=== PATIENT | female | born 1960 | race Caucasian/White ===

== ENCOUNTER 2019-11-19 13:15 | Inpatient (IN) | payer OTHER ==
[2019-12-22] MEDS ORDERED: Tranexamic Acid 1,000 MG/10 ML VIAL ONE (10:00)
[2019-12-22] MEDS ORDERED: Sodium Chloride 0.9% 100 ML ONE (10:00)
[2019-12-22] MEDS ORDERED: Vancomycin 1.5 GRAM/300 ML BAG 1.5 GM/300 ML BAG ONE (10:00)
[2019-12-22 10:37] LABS: Potassium 4.2 mmol/L (3.5-5.1)
[2019-12-22] MEDS ORDERED: Lidocaine 1.5% w/Epi 1:200K 30 ML VIAL (Epid Use) ONE (11:23)
[2019-12-22] MEDS ORDERED: PHENYLEPHRINE-NS 100 MCG/ML 10 ML SYRINGE ONE (11:23)
[2019-12-22] MEDS ORDERED: PROPOFOL 200 MG/20 ML VIAL ONE (11:23)
[2019-12-22] MEDS ORDERED: Lidocaine 1% PF 5 ML VIAL ONE (11:23)
[2019-12-22] MEDS ORDERED: Rocuronium Bromide 10 MG/ML (10ML VIAL) ONE (11:23)
[2019-12-22] MEDS ORDERED: Fentanyl 100 MCG/2 ML VIAL ONE ×3 (11:27→14:25)
[2019-12-22] MEDS ORDERED: Midazolam HCl 2 mg/2 ml Vial ONE (11:27)
[2019-12-22] MEDS ORDERED: Zolpidem Tartrate 5 MG TAB PO PRN ×2 (12:15→12:21)
[2019-12-22] MEDS ORDERED: Bupivacaine 0.25% 10 ML VIAL EPIDURAL PRN (12:15)
[2019-12-22] MEDS ORDERED: Hydrocerin (Eucerin) Cream 120 gm Jar TOP PRN (12:15)
[2019-12-22] MEDS ORDERED: Promethazine HCl 25 MG SUPP PR PRN (12:15)
[2019-12-22] MEDS ORDERED: diphenhydrAMINE 50 MG/ML VIAL IVP PRN (12:15)
[2019-12-22] MEDS ORDERED: Ondansetron PF 4 MG/2 ML Vial IVP PRN ×2 (12:15→12:21)
[2019-12-22] MEDS ORDERED: Naloxone HCl 0.4 mg/ml Vial IVP PRN (12:15)
[2019-12-22] MEDS ORDERED: Promethazine HCl 25 MG/ML VIAL IM PRN ×2 (12:15→12:21)
[2019-12-22] MEDS ORDERED: Naloxone HCl 0.4 mg/ml Vial IV PRN (12:15)
[2019-12-22] MEDS ORDERED: diphenhydrAMINE 50 MG/ML VIAL IM PRN (12:15)
[2019-12-22] MEDS ORDERED: diphenhydrAMINE 25 MG CAP PO PRN ×2 (12:15→12:21)
[2019-12-22] MEDS ORDERED: traMADol HCl 50 MG TAB PO PRN (12:21)
[2019-12-22] MEDS ORDERED: ASPIRIN PO PRN (12:23)
[2019-12-22] MEDS ORDERED: oxyCODONE/Acetaminophen 5 mg/325 mg Tablet PO PRN (12:23)
[2019-12-22] MEDS ORDERED: clonazePAM 1 MG TAB PO PRN (12:23)
[2019-12-22] MEDS ORDERED: CAFFEINE PO PRN (12:23)
[2019-12-22] MEDS ORDERED: Ropivacaine 0.2% HCl/PF 20 ML ONE (12:34)
--- NOTE | 2019-12-22 14:47 | RAD ---
RIGHT HIP TWO VIEWS: 12/22/19 HISTORY: Postop total hip arthroplasty. FINDINGS/IMPRESSION: There are recent postop changes of total hip arthroplasty in good position and alignment. POS: TPC
--- NOTE | 2019-12-22 15:19 | OP ---
DATE OF PROCEDURE: 12/22/2019 This is Ruben Gutierrez PA-C dictating for Zia Rice MD. ANESTHESIA: General via endotracheal tube, augmented with indwelling epidural. PREOPERATIVE DIAGNOSIS: End-stage bicompartmental osteoarthritis, right hip. POSTOPERATIVE DIAGNOSIS: End-stage bicompartmental osteoarthritis, right hip. PROCEDURE: Press-fit right total hip arthroplasty. SURGEON: Zia Rice MD. ACTIVITIES OFFICER: Ruben Gutierrez PA-C. COMPONENTS USED: [employer] Accolade II press-fit size 4 hip stem with a size 52-mm Trident PSL press-fit acetabular shell, one 6.5 cancellous bone screw, a 36 mm ceramic femoral head with a -5 neck length. ESTIMATED BLOOD LOSS: 100 mL. SPECIMENS: None. DRAINS: None. COMPLICATIONS: None. COUNTS: Correct. FINDINGS: End-stage severe degenerative bicompartmental disease, [id number] arthrosis, periarticular osteophyte formation, large serous effusion, and hypertrophic synovium, changes consistent with chronic bicompartmental osteoarthritis. INDICATIONS FOR SURGERY: Estephania is a 59-year-old white female who has had progressive right hip groin, and thigh pain and problems with standing and walking for the last 5 to 7 years. She has failed conservative management and elected to proceed with total hip arthroplasty as definitive treatment of her pain. PROCEDURE IN DETAIL: After informed consent was obtained in the preoperative holding area, the patient was taken to the operative suite where general anesthesia was induced. The patient was then positioned in the lateral decubitus position. The hip was then prepped and draped in usual sterile fashion. The patient received preoperative antibiotics. Prior to incision, time-out was called and all members of the surgical team agreed upon site, surgeon, and patient. After this, a longitudinal incision was made directly over the trochanter, noted by palpation extending 2 fingerbreadths above and below the trochanter. The deeper subcutaneous layer was undermined with Bovie electrocautery. The iliotibial band was encountered and incised sharply and the plane below this was developed bluntly. A Charnley retractor was placed to hold this opened. The lateral aspect of the trochanter and the abductor muscles were encountered and then reflected anteriorly off the trochanter using Bovie electrocautery. Once this was completed, the anterior capsule was then encountered and identified and copious capsulotomy was carried out, exposing the femoral neck and head. Dislocation maneuver was then performed and an in situ provisional neck cut was then made using the oscillating saw. Attention was then turned to acetabular preparation. Sequential reaming was carried out up to the appropriate diameter and a trial was then malleted into place with good firm resistance and no pullout. The permanent acetabular shell was then malleted squarely into place, as was the appropriate liner. Once completed, the wound was copiously irrigated and attention was then turned to femoral preparation. Flexion and external rotation were performed of the exposed thigh and femoral elevators were then placed at the proximal aspect of the wound. Canal finder was used to establish the length of the canal and sequential reaming was carried out, followed by broaching. Once the appropriate stability was established with the trial broaches with flexion, extension and rotational stability, we did trial with neutral and 2 mm offset incremental necks. Once the appropriate size was decided upon, with good stability noted with flexion, extension, internal and external rotation and shuck being negative, we removed the femoral trial broach and malletted into place the permanent prosthesis with good firm fit, which was also stable to rotation. Again, the hip felt very stable to flexion, extension, internal and external rotation. Leg lengths appeared near anatomic clinically and we were quite happy with prosthesis placement. Copious irrigation was then carried out through the entirety of the wound. Primary closure of the abductors was accomplished with interrupted #2 Vicryl [id number] stitches and the IT band was then closed with interrupted #2 Vicryl, oversewn with a #2 running barbed Quill stitch. Subcutaneous fascia was closed with running barbed Quill stitch and a subcuticular Monocryl barbed Quill stitch was used for skin closure and augmented with skin cement. A sterile dressing was applied. The procedure was terminated without any complication. All counts were correct. The patient was awakened in the operative suite and taken to the recovery room in stable condition. Job ID: [id number]
[2019-12-22] MEDS: Ketorolac Tromethamine 30 MG/ML VIAL IVP SCH ×2 (17:31→21:08)
[2019-12-22] MEDS: Sodium Chloride 0.9% 1,000 ML IV SCH ×2 (17:31→18:05)
[2019-12-22] MEDS: CEFAZOLIN 2 GM in Premix Bag 1 BAG IVPB SCH (18:06)
[2019-12-22 18:50] VITALS: BMI 29.0
[2019-12-22] MEDS ORDERED: FLU VACC QS2019-20(6MOS UP)/PF 60 MCG/0.5 ML SYRINGE IM ONE (21:00)
[2019-12-22] MEDS: traZODone HCl 50 MG TAB PO SCH (21:07)
[2019-12-22] MEDS: Ferrous Gluconate 324 MG TAB PO SCH (21:07)
[2019-12-22] MEDS: Senokot S 8.6-50 MG TAB PO SCH (21:07)
[2019-12-22] MEDS: Aspirin 81 mg Enteric Coated Tablet PO SCH (21:07)
[2019-12-23] MEDS: Fentanyl 5 mcg/Bup 0.075% Cadd 100 ML EPIDURAL SCH ×2 (00:55→17:11)
[2019-12-23] MEDS: CEFAZOLIN 2 GM in Premix Bag 1 BAG IVPB SCH (01:23)
[2019-12-23] MEDS: Ketorolac Tromethamine 30 MG/ML VIAL IVP SCH ×4 (05:43→23:34)
[2019-12-23 05:48] LABS: Hemoglobin 10.9 g/dL (12.0-16.0); Mean Corpuscular HGB CONC 33.2 g/dL (32.0-36.0); Mean Corpuscular Hemoglobin 29.7 pg (27.0-31.0); Mean Corpuscular Volume 89.5 fL (78.0-98.0); Mean Platelet Volume 7.1 fL (7.4-10.4); Platelet Count 247 thou/uL (130-400); RBC Distribution Width 12.5 % (11.5-14.5); Red Blood Cell (RBC) Count 3.65 mill/uL (4.20-5.40); White Blood Cell (WBC) Count 10.6 thou/uL (4.8-10.8)
[2019-12-23] MEDS: Sodium Chloride 0.9% 1,000 ML IV SCH ×2 (07:48→16:34)
[2019-12-23] MEDS: Atorvastatin Calcium 20 MG TAB PO SCH (09:22)
[2019-12-23] MEDS: Aspirin 81 mg Enteric Coated Tablet PO SCH ×2 (09:22→21:00)
[2019-12-23] MEDS: Amlodipine 10 MG TAB PO SCH (09:23)
[2019-12-23] MEDS: Senokot S 8.6-50 MG TAB PO SCH ×2 (09:23→21:00)
[2019-12-23] MEDS: Hydrochlorothiazide 25 MG TAB PO SCH (09:24)
[2019-12-23] MEDS: Multivitamin W/ Minerals 1 TAB PO SCH (09:24)
[2019-12-23] MEDS: Ferrous Gluconate 324 MG TAB PO SCH ×2 (09:24→21:00)
[2019-12-23] MEDS ORDERED: clonazePAM 1 MG TAB PO PRN (11:52)
[2019-12-23] MEDS ORDERED: traMADol HCl 50 MG TAB PO PRN ×2 (12:33)
[2019-12-23] MEDS: HYDROcodone/Acetaminophen 5/325 mg Tablet PO PRN (12:44)
--- NOTE | 2019-12-23 13:39 | PRG ---
DATE OF SERVICE: 12/23/2019 SUBJECTIVE: year-old female, postop day 1 from a right total hip arthroplasty. She is doing relatively well. She has no complaints of pain. She has been doing relatively well overnight. OBJECTIVE: GENERAL: She is alert and oriented to person, place, time, and situation. Responsive and appropriate with examiner. VITAL SIGNS: Temperature 99.6, pulse 68, respiratory rate 16 and nonlabored, blood pressure 96/63. MUSCULOSKELETAL: There is no shortening or malrotation. No strike through erythema. She is neurovascularly intact in the right lower extremity. LABORATORY DATA: Hemoglobin and hematocrit, 10.9 and 32.7. IMPRESSION: A 59-year-old female, postop day 1 right total hip arthroplasty, doing well. PLAN: Continue current care, probable discharge home tomorrow. Job ID: [id number]
--- NOTE | 2019-12-23 17:53 | CON ---
DATE OF CONSULTATION: REASON FOR CONSULTATION: The Medicine Service was consulted for general medical management. HISTORY OF PRESENT ILLNESS: Ms. Hodge is a 59-year-old female with a medical history of right hip osteoarthritis, that failed medical management, currently postoperative day 1 status post right arthroplasty. The patient tolerated the procedure well and started undergoing physical therapy. On encounter, lying in bed comfortably. Has no complaints except for right hip pain prior to receiving pain medication. Denies headache, fatigue, change in vision, generalized weakness, chest pain, palpitations, shortness of breath, abdominal pain, constipation, diarrhea, dysuria, burning on urination, or focal weakness. REVIEW OF SYSTEMS: As mentioned in the HPI. All other systems have been reviewed, and the remainder were negative. PAST MEDICAL HISTORY: PTSD, depression with suicidal attempt years ago, right hip osteoarthritis, and hypertension. PAST SURGICAL HISTORY: x4 and right hip arthroplasty. FAMILY HISTORY: Parents had hypertension. SOCIAL HISTORY: Does not smoke, drink, or do recreational drugs. Has a history of cocaine and marijuana use. ALLERGIES: NONE. HOME MEDICATIONS: 1. Amlodipine. 2. Hydrochlorothiazide. 3. Sertraline. 4. Atorvastatin. 5. Clonazepam. 6. Trazodone. PHYSICAL EXAMINATION: VITAL SIGNS: Afebrile, regular heart rate, regular respiratory rate, borderline hypotension. GENERAL APPEARANCE: No apparent distress. Alert and oriented x3. HEENT: Atraumatic and normocephalic. NECK: Supple. Symmetric. No JVD. HEART: Regular rate and rhythm. No murmurs or gallops. Lung: Clear to auscultation bilaterally. No wheezing, rales, or rhonchi. Not tachypneic. ABDOMEN: Soft, nontender, and nondistended. EXTREMITIES: Right hip covered with clean dressing. PSYCHIATRIC: Normal affect and behavior. Alert and oriented x3. IMPRESSION AND PLAN: Ms. Hodge is a 59-year-old female with a medical history of right hip arthroplasty status post failed medical management. Currently, postoperative day 1. The Medicine Service was consulted for general medical management. 1. Hypertension. a. Home regimen is hydrochlorothiazide and amlodipine. The patient is currently borderline hypotensive; therefore, amlodipine and hydrochlorothiazide were held. b. We will restart once the patient's blood pressure is above guidelines, which in her case is above 140/90. 2. Depression. a. The patient is currently taking sertraline. b. Sertraline was restarted as inpatient. 3. Insomnia. a. The patient is on home trazodone for insomnia. b. We will continue home regimen. 4. Preventive medicine. a. No labs to determine atherosclerotic vascular disease risk for 10 years; however, the patient has been taking atorvastatin at home. Can be followed by primary care physician upon discharge. 5. Normocytic anemia. a. The patient has a hemoglobin of 10.9 as compared to hemoglobin of 13.5 a month ago. b. The patient's RDW and MCV are within normal limits suggesting that anemia is likely due to surgical blood loss or anemia of chronic disease. Can be followed as outpatient by primary care physician. 6. Prophylaxis and disposition. a. The patient is full code. b. Gastrointestinal prophylaxis: No indication. c. Deep venous thrombosis prophylaxis: The patient has sequential compression devices. Job ID: [id number]
[2019-12-23] MEDS: traZODone HCl 50 MG TAB PO SCH (21:00)
[2019-12-24] MEDS: Sodium Chloride 0.9% 1,000 ML IV SCH ×2 (04:19→14:18)
[2019-12-24 05:35] LABS: Mean Corpuscular HGB CONC 31.3 g/dL (32.0-36.0); Mean Corpuscular Hemoglobin 28.4 pg (27.0-31.0); Mean Corpuscular Volume 90.5 fL (78.0-98.0); Mean Platelet Volume 7.3 fL (7.4-10.4); Platelet Count 252 thou/uL (130-400); RBC Distribution Width 12.8 % (11.5-14.5); Red Blood Cell (RBC) Count 3.87 mill/uL (4.20-5.40); White Blood Cell (WBC) Count 9.1 thou/uL (4.8-10.8)
[2019-12-24] MEDS: Ketorolac Tromethamine 30 MG/ML VIAL IVP SCH ×3 (05:41→17:19)
[2019-12-24] MEDS: Acetaminophen 325 MG TAB PO PRN ×2 (05:48→12:38)
[2019-12-24] MEDS: Aspirin 81 mg Enteric Coated Tablet PO SCH ×2 (09:19→21:08)
[2019-12-24] MEDS: Multivitamin W/ Minerals 1 TAB PO SCH (09:19)
[2019-12-24] MEDS: Atorvastatin Calcium 20 MG TAB PO SCH (09:19)
[2019-12-24] MEDS: Ferrous Gluconate 324 MG TAB PO SCH ×2 (09:19→21:08)
[2019-12-24] MEDS: Amlodipine 10 MG TAB PO SCH (09:20)
[2019-12-24] MEDS: Senokot S 8.6-50 MG TAB PO SCH ×2 (09:21→21:08)
[2019-12-24] MEDS: Hydrochlorothiazide 25 MG TAB PO SCH (09:21)
[2019-12-24] MEDS: HYDROcodone/Acetaminophen 5/325 mg Tablet PO PRN ×2 (09:23→21:07)
[2019-12-24] MEDS ORDERED: Senokot S 8.6-50 MG TAB PO PRN (20:27)
--- NOTE | 2019-12-24 20:32 | PDOC.HOSPP ---
- Subjective Encounter Date: 12/24/19 Encounter Time: 14:00 Subjective: no overnight events. Had multiple small loose bowel movements overnight. Feels well - Objective Vital Signs & Weight: Vital Signs (12 hours) Temp Pulse Resp BP BP Pulse Ox 12/24/19 15:00 98.0 F 74 12 109/62 94 L 12/24/19 13:39 98.1 F 12/24/19 12:00 99.3 F 76 14 99/58 L 100 12/24/19 09:20 86 110/70 Weight Admit Weight 180 lb Weight 180 lb I&O: 12/23/19 12/24/19 12/25/19 06:59 06:59 06:59 Intake Total 1999 1178 500 Output Total 1300 1575 250 Balance 700 -397 250 Result Diagrams: 12/24/19 05:21 12/22/19 10:22 Hospitalist ROS - Review of Systems Constitutional: denies: fever, chills, sweats, weakness, malaise, other Respiratory: denies: cough, dry, shortness of breath, hemoptysis, SOB with excertion, pleuritic pain, sputum, wheezing, other Cardiovascular: denies: chest pain, palpitations, orthopnea, paroxysmal noc. dyspnea, edema, light headedness, other Gastrointestinal: reports: diarrhea. denies: nausea, vomiting, abdominal pain, constipation, melena, hematochezia, other - Medication Medications: Active Medications Generic Name Dose Route Start Last Admin Trade Name Freq PRN Reason Stop Dose Admin Acetaminophen 650 mg 12/22/19 12:21 12/24/19 12:38 Tylenol PO 650 mg Q4H PRN Administration Headache/Fever or Pain Hydrocodone Bitart/Acetaminophen 1 tab 12/23/19 12:31 12/24/19 09:23 [place] 5/325 PO 1 tab Q4H PRN Administration PAIN SCALE 4-6 Amlodipine Besylate 10 mg 12/23/19 09:00 12/24/19 09:20 Norvasc PO Not Given DAILY HAJA Aspirin 81 mg 12/22/19 21:00 12/24/19 09:19 Ecotrin PO 81 mg BID HAJA Administration Atorvastatin Calcium 20 mg 12/23/19 09:00 12/24/19 09:19 Lipitor PO 20 mg DAILY HAJA Administration Diphenhydramine HCl 25 mg 12/22/19 12:15 12/23/19 16:49 Benadryl IVP 25 mg Q3H PRN Administration Itching Diphenhydramine HCl 25 mg 12/22/19 12:21 12/23/19 01:35 Benadryl PO 25 mg Q6H PRN Administration Itching Ferrous Gluconate 324 mg 12/22/19 21:00 12/24/19 09:19 Fergon PO 324 mg BID HAJA Administration Hydrochlorothiazide 25 mg 12/23/19 09:00 12/24/19 09:21 Hydrochlorothiazide PO Not Given DAILY HAJA Sodium Chloride 1,000 mls @ 100 mls/hr 12/22/19 12:30 12/24/19 14:18 Normal Saline 0.9% IV Not Given .Q10H HAJA Iron/Minerals/Multivitamins 1 tab 12/23/19 09:00 12/24/19 09:19 Theragran M PO 1 tab DAILY HAJA Administration Ketorolac Tromethamine 30 mg 12/23/19 12:00 12/24/19 17:19 Toradol IVP 12/28/19 12:01 30 mg Q6HR HAJA Administration Senna/Docusate Sodium 2 tab 12/22/19 21:00 12/24/19 09:21 Senokot S PO Not Given BID HAJA Sertraline HCl 200 mg 12/23/19 09:00 12/24/19 09:19 Zoloft PO 200 mg DAILY HAJA Administration Sodium Chloride 10 ml 12/22/19 12:21 12/24/19 11:53 Flush - Normal Saline IVF 10 ml PRN PRN Administration Saline Flush Trazodone HCl 100 mg 12/22/19 21:00 12/23/19 21:00 Desyrel PO 100 mg HS HAJA Administration - Exam General Appearance: NAD, awake alert Neck: supple, symmetric, no JVD, no thyromegaly, no lymphadenopathy, no carotid bruit Heart: RRR, no murmur, no gallops, no rubs, normal peripheral pulses Respiratory: CTAB, no wheezes, no rales, no ronchi, normal chest expansion, no tachypnea, normal percussion Gastrointestinal: soft, non-tender, non-distended, normal bowel sounds, no palpable masses, no hepatomegaly, no splenomegaly, no bruit Hosp A/P - Plan #Diarrhea -multiple small loose bowel movements overnight -will change senna/doc from scheduled to PRN considering loose bowel movements and deescalation of opoids pain management otherwise, management unchanged. will continue to follow
[2019-12-24] MEDS: traZODone HCl 50 MG TAB PO SCH (21:08)
[2019-12-25] MEDS: Ketorolac Tromethamine 30 MG/ML VIAL IVP SCH ×3 (00:06→11:49)
[2019-12-25] MEDS: Sodium Chloride 0.9% 1,000 ML IV SCH ×2 (00:17→11:39)
[2019-12-25 05:19] LABS: Hemoglobin 10.4 g/dL (12.0-16.0); Mean Corpuscular HGB CONC 32.3 g/dL (32.0-36.0); Mean Corpuscular Hemoglobin 29.5 pg (27.0-31.0); Mean Corpuscular Volume 91.2 fL (78.0-98.0); Mean Platelet Volume 7.2 fL (7.4-10.4); Platelet Count 237 thou/uL (130-400); RBC Distribution Width 12.8 % (11.5-14.5); Red Blood Cell (RBC) Count 3.53 mill/uL (4.20-5.40); White Blood Cell (WBC) Count 7.3 thou/uL (4.8-10.8)
[2019-12-25] MEDS: Ferrous Gluconate 324 MG TAB PO SCH (08:48)
[2019-12-25] MEDS: Multivitamin W/ Minerals 1 TAB PO SCH (08:48)
[2019-12-25] MEDS: Aspirin 81 mg Enteric Coated Tablet PO SCH (08:48)
[2019-12-25] MEDS: Atorvastatin Calcium 20 MG TAB PO SCH (08:48)
[2019-12-25] MEDS: Amlodipine 10 MG TAB PO SCH (09:19)
--- NOTE | 2019-12-25 11:08 | DIS ---
DATE OF ADMISSION: 12/22/2019 DATE OF DISCHARGE: 12/25/2019 This is Talia Rose PA-C dictating a report for Zia Rice MD. CONSULTANTS: Consultants on [facility] case include [facility] and [facility]. PREOPERATIVE DIAGNOSIS: Degenerative osteoarthritis of right hip. POSTOPERATIVE DIAGNOSIS: Degenerative osteoarthritis of right hip. PROCEDURE PERFORMED: Right total hip arthroplasty. BRIEF HOSPITAL COURSE: This is a 59-year-old female, who was indicated for the above-mentioned procedure after failing conservative treatment in the outpatient setting. She did well in the operative suite and postoperatively was admitted to [address] Here, she worked with physical and occupational therapist. She was out of bed on the day of surgery. By postop day #1, she was standing at bedside and progressing quite nicely. Her pain was managed by [facility]. She continued to improve on postop days 2 and 3, and on postop day 3, she was discharged home. No complications incurred throughout her hospital stay. DISCHARGE DISPOSITION: Home. DISCHARGE CONDITION: Stable. DISCHARGE INSTRUCTIONS: The patient will follow up with Dr. Rice as scheduled. She will follow up with therapy as scheduled. She will keep her surgical site clean, dry, and intact until followup. DISCHARGE MEDICATIONS: See MAR. Job ID: [id number]
[2019-12-25] MEDS: HYDROcodone/Acetaminophen 5/325 mg Tablet PO PRN (13:49)
[2019-12-25 15:10] VITALS: BP 135/73; TEMP 98.7
== END 2019-12-25 17:43 | disposition home or self-care (01) | DRG 470 ==
LOC: SURG A 12-22 09:40 → SJJU 12-22 17:11
PROVIDERS: ADMIT Orthopaedic Surgery; ATTEND Orthopaedic Surgery
PROC: 0SR903A Replacement of Right Hip Joint with Ceramic Synthetic Substitute, Uncemented, Open Approach (ICD-10-PCS; principal; 2019-12-22)
DX: M16.11 Unilateral primary osteoarthritis, right hip (principal); I10 Essential (primary) hypertension; E78.5 Hyperlipidemia, unspecified; G43.909 Migraine, unspecified, not intractable, without status migrainosus; F32.9 Major depressive disorder, single episode, unspecified; G47.00 Insomnia, unspecified; D53.9 Nutritional anemia, unspecified; R19.7 Diarrhea, unspecified; F43.10 Post-traumatic stress disorder, unspecified; Z90.710 Acquired absence of both cervix and uterus; Z79.899 Other long term (current) drug therapy
CPT/HCPCS: 36415; 84132; 85027; 90471; 90686; G0008; J0690; J1200; J1885; J2001; J2250; J2704; J2795; J3010; J3490; Q0163

== ENCOUNTER 2019-11-24 05:48 | Outpatient (CLI) | payer OTHER ==
[2019-11-24 14:29] LABS: #Basophils 0.1 thou/uL (0.0-0.2); #Eosinphils 0.2 thou/uL (0.0-0.7); #Lymphocytes 2.6 thou/uL (1.20-3.40); #Monocytes 0.6 thou/uL (0.11-0.59); %Basophils 0.7 % (0.0-1.0); %Lymphocytes 30.7 % (21.0-51.0); %Monocytes 6.8 % (0.0-10.0); %Neutrophils 59.8 % (42.0-75.0); Hemoglobin 13.5 g/dL (12.0-16.0); Mean Corpuscular HGB CONC 32.2 g/dL (32.0-36.0); Mean Corpuscular Volume 87.1 fL (78.0-98.0); Mean Platelet Volume 6.9 fL (7.4-10.4); Platelet Count 362 thou/uL (130-400); RBC Distribution Width 12.3 % (11.5-14.5); Red Blood Cell (RBC) Count 4.83 mill/uL (4.20-5.40); White Blood Cell (WBC) Count 8.3 thou/uL (4.8-10.8)
[2019-11-24 14:35] LABS: PTT 29.1 SEC (22.9-36.1); Prothrombin Time 12.8 SEC (12.0-14.7)
[2019-11-24 14:39] LABS: Bacteria/HPF None Seen HPF (None Seen); Bilirubin Negative (Negative); Blood, Urine Negative (Negative); Clarity Clear (Clear); Glucose, Urine (Dipstick) Normal (Negative); Leukocyte Negative Leu/uL (Negative); Nitrite Negative (Negative); Protein, Urine (Dipstick) Negative (Neg-Trace); RBC/HPF 0-3 HPF (0-3); Urobilinogen Normal mg/dL (Less than 2); WBC/HPF 0-3 HPF (0-3)
[2019-11-24 14:54] LABS: Anion Gap 12 mmol/L (10-20); BUN (Urea Nitrogen) 15 mg/dL (9.8-20.1); Calc. Creatinine Clearance 0 mL/min (70-130); Calcium 9.5 mg/dL (7.8-10.44); Carbon Dioxide 29 mmol/L (22-29); Chloride 103 mmol/L (98-107); Estimated GFR-MDRD 79; Glucose 99 mg/dL (70-105); Potassium 3.2 mmol/L (3.5-5.1); Sodium 141 mmol/L (136-145)
== END 2019-11-24 05:49 | disposition home or self-care (01) ==
LOC: LABBT 05:48
PROVIDERS: ATTEND Orthopaedic Surgery
DX: Z01.818 Encounter for other preprocedural examination (principal); M16.11 Unilateral primary osteoarthritis, right hip
CPT/HCPCS: 80048; 81001; 85025; 85610; 85730; 87081; 93005; 93010

== ENCOUNTER 2019-12-17 12:44 | Outpatient (CLI) | payer OTHER ==
[2019-12-17 14:16] LABS: Anion Gap 14 mmol/L (10-20); BUN (Urea Nitrogen) 22 mg/dL (9.8-20.1); Calc. Creatinine Clearance 0 mL/min (70-130); Calcium 9.1 mg/dL (7.8-10.44); Carbon Dioxide 28 mmol/L (22-29); Chloride 99 mmol/L (98-107); Estimated GFR-MDRD 76; Glucose 103 mg/dL (70-105); Sodium 138 mmol/L (136-145)
[2019-12-17 14:18] LABS: Potassium 2.9 mmol/L (3.5-5.1)
== END 2019-12-17 12:45 | disposition home or self-care (01) ==
LOC: LABBT 12:44
PROVIDERS: ATTEND Orthopaedic Surgery
DX: Z01.812 Encounter for preprocedural laboratory examination (principal); M16.11 Unilateral primary osteoarthritis, right hip
CPT/HCPCS: 80048